=== PATIENT | female | born 1935 | race Caucasian/White ===

== ENCOUNTER 2017-09-09 20:10 | Emergency (ER) | payer MEDICARE, BC ==
[~2017-09-09 20:10] MED LIST: AMLO2.5T PO; MECL-62 PO
[2017-09-09 20:11] VITALS: BP 194/86; PULSE 92; RESP 16; TEMP 97.8; O2SAT 96
[2017-09-09] MEDS ORDERED: IOHEXOL 350 MG/ML 10 ML VIAL (for RAD DIAG) IVCONTRAST ONE (20:11)
[2017-09-09 22:01] VITALS: BP 187/81; PULSE 88; RESP 13; O2SAT 98
[2017-09-09] MEDS ORDERED: SODIUM CHLOR 0.9% 1000 ML INJ 1,000 ML IV SCH (22:03)
--- NOTE | 2017-09-09 22:06 | PD ---
HPI Chief Complaint: Abdominal Pain Time Seen by Provider: 22:03 Travel History International Travel<30 days: No Contact w/Intl Traveler<30days: No Traveled to known affect area: No History of Present Illness HPI 82-year-old female presents to the emergency department for complaint of 3 days of lower abdominal pain with episode of vomiting today no hematemesis no coffee- ground emesis no melena hematochezia. No urinary symptoms. No fever or chills. No chest pain or shortness of breath. Patient is status post hysterectomy and appendectomy. Patient has prior history of colitis and diverticulitis. Patient rates discomfort as moderate to severe. Pain was worse today. Patient takes no blood thinning agents. Patient is not diabetic. PFSH Past Medical History Narrative Medical Arthritis hypertension diverticulitis hysterectomy appendectomy; no tobacco use : Nursing notes reviewed Arthritis: Yes Diminished Hearing: No Diverticulitis: Yes Gastrointestinal Disorders: Yes (HERNIA) GERD: Yes Hypertension: Yes ?: Not Menopausal: Yes Past Surgical History Appendectomy: Yes Gynecologic Surgery: Yes (D&C) Hysterectomy: Yes Other Surgery: Yes (VEIN STRIPPING RLE) Social History Alcohol Use: Yes (OCCASIONAL) Tobacco Use: No Substance Use: No Allergies-Medications (Allergen,Severity, Reaction): Coded Allergies: penicillin G (Unverified Allergy, Severe, UNKNOWN, 05/15/17) Reported Meds & Prescriptions Reported Meds & Active Scripts Active Phenergan (Promethazine HCl) 25 Mg Tablet 25 Mg PO Q6H PRN Flagyl (Metronidazole) 500 Mg Tab 500 Mg PO QID 7 Days Cipro (Ciprofloxacin HCl) 500 Mg Tab 500 Mg PO BID 7 Days Meclizine (Meclizine HCl) 25 Mg Tab 25 Mg PO Q8HR PRN Reported Amlodipine (Amlodipine Besylate) 2.5 Mg Tab 2.5 Mg PO DAILY Review of Systems Except as stated in HPI: all other systems reviewed are Neg Physical Exam Narrative GENERAL: Well-developed well-nourished female in no acute distress no respiratory distress SKIN: Warm and dry. HEAD: Normocephalic. EYES: No scleral icterus. No injection or drainage. NECK: Supple, trachea midline. No JVD or lymphadenopathy. CARDIOVASCULAR: Regular rate and rhythm without murmurs, gallops, or rubs. RESPIRATORY: Breath sounds equal bilaterally. No accessory muscle use. GASTROINTESTINAL: Abdomen soft mild bilateral lower quadrant tenderness to palpation without guarding or rebound, nondistended. MUSCULOSKELETAL: No cyanosis, or edema. BACK: Nontender without obvious deformity. No CVA tenderness. Data Data Last Documented VS Vital Signs Date Time Temp Pulse Resp B/P (MAP) Pulse Ox O2 Delivery O2 Flow Rate FiO2 09/09/17 22:21 12 96 Room Air 09/09/17 22:01 88 09/09/17 20:11 97.8 Orders Orders Complete Blood Count With Diff (09/09/17 22:03) Comprehensive Metabolic Panel (09/09/17 22:03) Lipase (09/09/17 22:) Lactic Acid (09/09/17:) Urinalysis - C+S If Indicated (09/09/17:) Ct Abd/Pel W Iv Contrast(Rout) (09/09/17 22:03) Iv Access Insert/Monitor (09/09/17 22:) Ecg Monitoring (09/09/17:) Oximetry (09/09/17 22:) Ondansetron Inj (Zofran Inj) (09/09/17 22:15) Sodium Chlor 0.9% 1000 Ml Inj (Ns 1000 M (09/09/17 22:03) Sodium Chloride 0.9% Flush (Ns Flush) (09/09/17 22:15) Electrocardiogram (09/09/17 22:03) Chest, Single Ap (09/09/17 22:03) Iohexol 350 Inj (Omnipaque 350 Inj) (09/09/17 20:11) Metronidazole 500 Mg Inj (Flagyl 500 Mg (09/10/17 00:30) Levofloxacin (Levaquin) (09/10/17 00:30) Morphine Inj (Morphine Inj) (09/10/17 00:30) Ed Discharge Order (09/10/17 01:43) Labs Laboratory Tests Test 09/09/17 22:10 09/09/17 23:15 White Blood Count 11.5 TH/MM3 Red Blood Count 4.53 MIL/MM3 Hemoglobin 13.8 GM/DL Hematocrit 41.5 % Mean Corpuscular Volume 91.6 FL Mean Corpuscular Hemoglobin 30.5 PG Mean Corpuscular Hemoglobin Concent 33.3 % Red Cell Distribution Width 13.9 % Platelet Count 194 TH/MM3 Mean Platelet Volume 8.6 FL Neutrophils (%) (Auto) 81.1 % Lymphocytes (%) (Auto) 11.1 % Monocytes (%) (Auto) 7.0 % Eosinophils (%) (Auto) 0.4 % Basophils (%) (Auto) 0.4 % Neutrophils # (Auto) 9.4 TH/MM3 Lymphocytes # (Auto) 1.3 TH/MM3 Monocytes # (Auto) 0.8 TH/MM3 Eosinophils # (Auto) 0.0 TH/MM3 Basophils # (Auto) 0.0 TH/MM3 CBC Comment DIFF FINAL Differential Comment Blood Urea Nitrogen 19 MG/DL Creatinine 0.85 MG/DL Random Glucose 124 MG/DL Total Protein 8.0 GM/DL Albumin 3.8 GM/DL Calcium Level 9.7 MG/DL Alkaline Phosphatase 115 U/L Aspartate Amino Transf (AST/SGOT) 16 U/L Alanine Aminotransferase (ALT/SGPT) 20 U/L Total Bilirubin 0.5 MG/DL Sodium Level 135 MEQ/L Potassium Level 3.8 MEQ/L Chloride Level 101 MEQ/L Carbon Dioxide Level 28.4 MEQ/L Anion Gap 6 MEQ/L Estimat Glomerular Filtration Rate 64 ML/MIN Lactic Acid Level 0.9 mmol/L Lipase 155 U/L Urine Color COLORLESS Urine Turbidity CLEAR Urine pH 5.5 Urine Specific [place] 1.005 Urine Protein NEG mg/dL Urine Glucose (UA) NEG mg/dL Urine Ketones NEG mg/dL Urine Occult Blood NEG Urine Nitrite NEG Urine Bilirubin NEG Urine Urobilinogen LESS THAN 2.0 MG/DL Urine Leukocyte Esterase NEG Urine WBC LESS THAN 1 /hpf Urine Squamous Epithelial Cells <1 /hpf Urine Bacteria RARE /hpf Microscopic Urinalysis Comment CULT NOT INDICATED MDM Medical Decision Making Medical Screen Exam Complete: Yes Emergency Medical Condition: Yes Medical Record Reviewed: Yes Interpretation(s) EKG: Normal sinus rhythm rate [address] elevation injury pattern or ectopy noted Last Impressions Chest X-Ray 09/09/172202 Signed Impressions: Service Date/Time: Saturday, September 09, 2017 22:16 - CONCLUSION: Normal examination. Fidel Fields MD Abdomen/Pelvis CT 09/09/172202 Signed Impressions: Service Date/Time: Sunday, September 10, 2017 00:05 - CONCLUSION: 1. Findings are suspicious for acute diverticulitis region of the hepatic flexure. 2. Multiple subcentimeter nodules in the lower/mid right lung. Otoniel Craven MD CBC & BMP Diagram 09/09/17 22:10 Total Protein 8.0, Albumin 3.8, Calcium Level 9.7, Alkaline Phosphatase 115, Aspartate Amino Transf (AST/SGOT) 16, Alanine Aminotransferase (ALT/SGPT) 20, Total Bilirubin 0.5 Differential Diagnosis abdominal pain diverticulitis colitis UTI bowel obstruction also consider ischemic colitis Narrative Course IV access obtained specimens collected and sent for resulting CBC is automated differential and chemistries resulted and CT abdomen and pelvis ordered CT abdomen and pelvis consistent with diverticulitis patient informed of this and patient given an IV dose of Flagyl and oral dose of Levaquin 500 Patient also given one-time dose of morphine 2 mg IV Patient is stable for outpatient management patient and son are informed of diagnosis and treatment regimen and are agreeable outpatient management with close follow-up with the primary care provider and encouraged to return to the emergency department if fever vomiting or any concerns. Diagnosis Primary Impression: Diverticulitis Referrals: Primary Care Physician 2 days Patient Instructions: Narcotic given in the ED, General Instructions Med/Other Pt SpecificInfo: Prescription(s) given Scripts Oxycodone-Acetaminophen (Percocet) 5-325 mg Tab 0.5-1 TAB PO Q6H Y for PAIN, #7 TAB 0 Refills Prov: Meseret Yang MD 09/10/17 Promethazine (Phenergan) 25 Mg Tablet 25 MG PO Q6H Y for NAUSEA OR VOMITING, #7 TAB 0 Refills Prov: Meseret Yang MD 09/10/17 Metronidazole (Flagyl) 500 Mg Tab 500 MG PO QID for Infection for 7 Days, TAB 0 Refills Prov: Meseret Yang MD 09/10/17 Ciprofloxacin (Cipro) 500 Mg Tab 500 MG PO BID for Infection for 7 Days, #14 TAB 0 Refills Prov: Meseret Yang MD 09/10/17 Disposition: 01 DISCHARGE HOME Condition: Stable Meseret Yang MD Sep 09, 2017 22:06
[2017-09-09] MEDS ORDERED: ONDANSETRON HCL 4 MG/2 ML VIAL IVP ONE (22:15)
[2017-09-09] MEDS ORDERED: SODIUM CHLORIDE 0.9% FLUSH 10 ML FLUSH IV FLUSH PRN (22:15)
[2017-09-09 22:21] VITALS: RESP 12; O2SAT 96
[2017-09-09 22:22] LABS: AUTOMATED NEUTROPHIL # 9.4 TH/MM3 (1.8-7.7); BASOPHIL % 0.4 % (0.0-2.0); EOSINOPHIL % 0.4 % (0.0-4.0); HEMATOCRIT 41.5 % (35.0-46.0); HEMO FLAGS DIFF FINAL; LYMPH % 11.1 % (9.0-44.0); LYMPHOCYTE # 1.3 TH/MM3 (1.0-4.8); MEAN CELL VOLUME 91.6 FL (80.0-100.0); MEAN CORPUSCULAR HEMOGLOBIN 30.5 PG (27.0-34.0); MEAN CORPUSCULAR HGB CONC 33.3 % (32.0-36.0); NEUT % 81.1 % (16.0-70.0); PLATELET COUNT 194 TH/MM3 (150-450); RED BLOOD COUNT 4.53 MIL/MM3 (4.00-5.30); RED CELL DISTRIBUTION WIDTH 13.9 % (11.6-17.2); WHITE BLOOD COUNT 11.5 TH/MM3 (4.0-11.0)
[2017-09-09 22:36] LABS: ALT (GPT) 20 U/L (10-53); ANION GAP 6 MEQ/L (5-15); AST (GOT) 16 U/L (15-37); BICARBONATE 28.4 MEQ/L (21.0-32.0); BLOOD UREA NITROGEN 19 MG/DL (7-18); CHLORIDE 101 MEQ/L (98-107); GLOMERULAR FILTRATION RATE 64 ML/MIN (>89); POTASSIUM 3.8 MEQ/L (3.5-5.1); SODIUM (NA) 135 MEQ/L (136-145)
[2017-09-09 22:39] LABS: ALKALINE PHOSPHATASE 115 U/L (45-117); TOTAL BILIRUBIN ADULT 0.5 MG/DL (0.2-1.0)
--- NOTE | 2017-09-09 22:41 | RADRPT ---
EXAM DATE/TIME: 09/09/2017 22:16 [facility] COMPARISON: No previous studies available for comparison. INDICATIONS : Free air MEDICAL HISTORY : Diverticulitis. SURGICAL HISTORY : Appendectomy ENCOUNTER: Initial ACUITY: 3 days PAIN SCORE: 2/10 LOCATION: Bilateral chest FINDINGS: A single view of the chest demonstrates the lungs to be symmetrically aerated without evidence of mas s, infiltrate or effusion. The cardiomediastinal contours are unremarkable. Osseous structures are intact. Free intraperitoneal air is not seen. CONCLUSION: Normal examination. Fidel Fields MD on September 09, 2017 at 22:39 Board Certified Radiologist. This report was verified electronically.
[2017-09-09 23:31] LABS: BACTERIA, URINE RARE /hpf; BLOOD, URINE NEG (NEG); COMMENT (UR) CULT NOT INDICATED; CULTURE IF INDICATED CULT NOT INDICATED; GLUCOSE,URINE NEG (NEG); KETONE, URINE NEG (NEG); NITRITE,URINE NEG (NEG); PH, URINE 5.5 (5.0-8.5); SQUAMOUS EPITHELIAL CELL URINE <1 /hpf (0-5); URINE COLOR COLORLESS (YELLW/STRAW)
--- NOTE | 2017-09-10 00:27 | RADRPT ---
EXAM DATE/TIME: 09/10/2017 00:05 [facility] COMPARISON: CT ABDOMEN & PELVIS W CONTRAST, October 23, 2014, 15:29. INDICATIONS : Low abdomen pain. IV CONTRAST: 95 cc Omnipaque 350 (iohexol) IV ORAL CONTRAST: No oral contrast ingested. RADIATION DOSE: 12.71 CTDIvol (mGy) MEDICAL HISTORY : Hypertension. Diverticulitis. Gastroesophageal reflux disease.Hernia SURGICAL HISTORY : None. ENCOUNTER: Initial ACUITY: 1 day PAIN SCALE: 10/10 LOCATION: low abdomen TECHNIQUE: Volumetric scanning of the abdomen and pelvis was performed. Using automated exposure control and ad justment of the mA and/or kV according to patient size, radiation dose was kept as low as reasonably achievable to obtain optimal diagnostic quality images. DICOM format image data is available electro nically for review and comparison. FINDINGS: The examination is abnormal demonstrating abnormal appearance to the right colon in the region of the hepatic flexure with ill-defined thickening of the wall and marked induration of the fat about a seg ment which measures in excess of 7 cm in length. There are several diverticula seen in the effected area of the right colon. Mild amount of stool is seen in the cecum and inferior right colon. No dil ated loops of small bowel no evidence of free fluid. Prior CT in October 2014 had demonstrated radiographic findings of acute diverticulitis in the sigmoi d colon. The fat about the sigmoid colon is normal in configuration. No evidence of free fluid and either the cul-de-sac or right paracolic gutter. The liver, spleen, gallbladder, kidneys, adrenal glands, and pancreas are normal in appearance. Ingu inal regions are unremarkable. Bladder contour is smooth. Osseous structures are grossly intact. Images of the right lower lung demonstrate multiple nodular densities, the larger of which measures 6 lateral inferior right major fissure. There are 3 additional nodules which measure 4 mm or less inc luding one in the subpleural region anterior lateral right lung postop no evidence of pleural effusio n or focal infiltrate. CONCLUSION: 1. Findings are suspicious for acute diverticulitis region of the hepatic flexure. 2. Multiple subcentimeter nodules in the lower/mid right lung. Otoniel Craven MD on September 10, 2017 at 0:19 Board Certified Radiologist. This report was verified electronically.
[2017-09-10] MEDS ORDERED: MORPHINE SULFATE 2 MG/ML INJ IV PUSH ONE (00:30)
[2017-09-10] MEDS ORDERED: LEVOFLOXACIN 500 MG TAB PO ONE (00:30)
[2017-09-10] MEDS ORDERED: metroNIDAZOLE 500 MG INJ 100 ML IV ONE (00:30)
[2017-09-10] MEDS ORDERED: CIPR-9 PO (00:32)
[2017-09-10] MEDS ORDERED: PROM25TA10 PO (00:32)
[2017-09-10] MEDS ORDERED: METR-1 PO (00:32)
[2017-09-10] MEDS ORDERED: PERC5TAB12 PO (01:44)
--- NOTE | 2017-09-10 19:06 | EKG ---
Date Performed: 09/09/2017 Time Performed: 22:34:14 PTAGE: 82 years EKG: Sinus rhythm BORDERLINE LEFT AXIS DEVIATION MINIMAL VOLTAGE CRITERIA FOR LVH, CONSIDER NORMAL VARIANT BORDERLINE ECG PREVIOUS TRACING : 07/31/2016 18.30 Compared to prior tracing no significant change DOCTOR: Dimitrios Dietrich Interpretating Date/Time 09/10/2017 19:04:43
== END 2017-09-10 02:16 | disposition home or self-care (01) ==
LOC: NEPC 20:10
DX: K57.92 Diverticulitis of intestine, part unspecified, without perforation or abscess without bleeding (principal); M19.90 Unspecified osteoarthritis, unspecified site; K21.9 Gastro-esophageal reflux disease without esophagitis; I10 Essential (primary) hypertension; Z79.899 Other long term (current) drug therapy; Z88.0 Allergy status to penicillin
CPT/HCPCS: 71010; 74177; 80053; 81001; 83605; 83690; 85025; 93005; 96374; 96375; 99285; J2270; J2405; J7030; Q9967